=== PATIENT | male | born 1965 | race Caucasian/White ===

== ENCOUNTER 2019-09-07 06:28 | Observation (INO) | payer SELFPAY ==
[2019-09-07] MEDS ORDERED: diazePAM 5 MG TAB PO ONE (07:31)
[2019-09-07] MEDS ORDERED: HYDROcodone 5MG/APAP 325MG 1 EA TAB PO ONE (07:37)
--- NOTE | 2019-09-07 07:37 | ED.PDOC ---
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 Pt has not been able to sleep since the pain. Pain is sharp, radiates into L arm, had an episode of nausea with vomiting when pain was at its worst earlier. Reports hx of L spine surgery 20 yrs ago, had been to chiropractor in the past, yesterdays manipulation was "not an easy manipulation." Denies trauma, falls, f/c, cough, congestion, CP, SOB, diffuse myalgias, FITZPATRICK, change in vision, weakness, numbness, abd pain, flank pain, urinary sx. Allergies/Adverse Reactions: Allergies Eggs or Egg-derived Products Allergy (Verified 09/07/19 06:49) Flu Virus Vaccine Allergy (Verified 09/07/19 06:49) Home Medications: Ambulatory Orders Diltiazem HCl [Diltiazem HCl ER] 180 mg PO BID 09/07/19 Lisinopril 20 mg PO BID 09/07/19 Meloxicam 7.5 mg PO BID 09/07/19 Serrapeptase 120,000 unit PO DAILY 09/07/19 Review of Systems - Review of Systems Constitutional: Denies: chills, fever EENTM: Denies: blurred vision, double vision Respiratory: Denies: cough, short of breath Cardiology: Denies: chest pain, palpitations Gastrointestinal/Abdominal: States: nausea, vomiting. Denies: abdominal pain, diarrhea Musculoskeletal: States: back pain, neck pain. Denies: joint pain, joint swelling, muscle stiffness Skin: Denies: change in color, rash Neurological: Denies: headache, numbness, weakness Hematologic/Lymphatic: Denies: easy bleeding, easy bruising Past Medical History (General) - Patient Medical History Hx Cardiac Disorders: Yes Hx Hypertension: Yes Surgical History: other - Vaccination History Hx Tetanus, Diphtheria Vaccination: Yes Hx Influenza Vaccination: No - allergic Hx Pneumococcal Vaccination: No - Social History Hx Tobacco Use: Yes Hx Alcohol Use: Yes Family Medical History - Family History Father Hx Family Hypertension: Yes Hx Cardiac Disease: Yes - a-fib Mother Hx Family Cancer: Yes - breast Physical Exam - Physical Exam General Appearance: Alert, No apparent distress, Well Developed, Well Nourished, Other - Laying reclined in bed, R arm behind head Eye Exam: bilateral normal Ears, Nose, Throat: normal ENT inspection Neck: full range of motion, supple, normal inspection, other - Lower C midline and paraspinal TTP Respiratory: chest non-tender, lungs clear, normal breath sounds, no respiratory distress, no accessory muscle use Cardiovascular/Chest: normal peripheral pulses, regular rate, rhythm, no edema, no gallop, no JVD, no murmur Peripheral Pulses: radial,right: 2+, radial,left: 2+ Gastrointestinal/Abdominal: non tender, soft, no organomegaly, no pulsatile mass Back Exam: normal inspection, no CVA tenderness, vertebral tenderness - Upper T midline and paraspinal TTP Extremity: normal range of motion, non-tender, normal inspection, no pedal edema, no calf tenderness, normal capillary refill 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 Pt states he is having chest pain, however when he points to where that pain is, it is not in his chest and instead in his armpit. He is not having pain in his chest. EKG ordered, will reassess. 09/07/19 09:48 EKG with incomplete RBBB and LAFB, will obtain blood work. Pt CP has been constant since onset last night and therefore doubt ACS. 09/07/19 11:07 Discussed with [facility] midlevel for hospitalist, accepts pt for admission. Subsequently discussed with pt, agrees with plan of care, all questions and concerns addressed. Pt states he drinks about 4-8 16 ounces bottles of water a day. Cecily Ordonez MD Emergency Medicine Physician Billing Number [id number] - Results/Orders Results/Orders: 09/07/19 09:30 EKG STAT Laboratory Results - last 24 hr 09/07/19 09/07/19 09/07/19 10:18 10:18 10:18 WBC 9.5 RBC 4.82 Hgb 14.8 Hct 42.4 MCV 87.9 MCH 30.7 MCHC 35.0 RDW 12.5 Plt Count 304 MPV 7.5 Absolute Neuts (auto) 6.80 Absolute Lymphs (auto) 2.00 Absolute Monos (auto) 0.60 Absolute Eos (auto) 0.10 Absolute Basos (auto) 0.10 Neutrophils % 71.8 Lymphocytes % 21.1 Monocytes % 5.8 Eosinophils % 0.7 L Basophils % 0.6 Sodium 122 L Potassium 3.9 Chloride 85 L Carbon Dioxide 23 Anion Gap 17.9 BUN 9 Creatinine 0.80 BUN/Creatinine Ratio 11.3 Random Glucose 111 H Serum Osmolality 245.3 L* Calcium 9.4 Total Bilirubin 0.7 AST 21 ALT 23 Alkaline Phosphatase 57 Troponin I < 0.02 Serum Total Protein 7.9 Albumin 4.7 Globulin 3.2 Albumin/Globulin Ratio 1.5 CXR: EXAM: XR Chest, 2 Views CLINICAL HISTORY: back pain TECHNIQUE: Frontal and lateral views of the chest. COMPARISON: No relevant prior studies available. FINDINGS: Limitations: None. Lungs: Unremarkable. No consolidation. Pleural space: Unremarkable. No pneumothorax. Heart: Unremarkable. No cardiomegaly. Mediastinum: Unremarkable. Bones/joints: Unremarkable. IMPRESSION: No acute findings in the chest. Electronically signed by: Marilou Saul MD 09/07/2019 11:02 AM HARNESS AND BAG INSPECTOR CT T spine: PROCEDURE: CT Thoracic Spine Without Intravenous Contrast CLINICAL INDICATION: The patient is 53 years years old, Male; pain TECHNIQUE: Axial computed tomography images of the thoracic spine without intravenous contrast. Sagittal and coronal reformatted images were created and reviewed. This CT exam was performed using one or more of the following dose reduction techniques: automated exposure control, adjustment of the mA and/or kV according to patient size, and/or use of iterative reconstruction technique. COMPARISON: No relevant prior studies available. FINDINGS: VERTEBRAE: There is no evidence of acute fracture, osseous destruction or osteoblastic changes. Vertebral body heights are maintained. There are multilevel endplate irregularities in the thoracic spine consistent with Scheuermann's disease. No evidence of subluxation or dislocation. There is a slight dextroconvex thoracic curve. DISCS/SPINAL CANAL/NEURAL FORAMINA: Disc heights are maintained. SOFT TISSUES: The paraspinous soft tissues are normal. VASCULATURE: Incidentally noted is atherosclerosis in the LAD coronary artery. The visualized aorta demonstrates scattered atherosclerosis without evidence of an aneurysm. PLEURAL SPACE: The visualized lungs are clear with no evidence of gross consolidation, pleural effusions or pneumothoraces. IMPRESSION: No acute osseous abnormality in the thoracic spine. Incidentally noted is atherosclerosis in the LAD coronary artery. Electronically signed by: Natalee Mensah MD 09/07/2019 9:17 AM HARNESS AND BAG INSPECTOR CT C spine: PROCEDURE: CT Cervical Spine Without Intravenous Contrast CLINICAL INDICATION: The patient is 53 years old and is Male; pain MAIN TECHNIQUE: Axial computed tomography images of the cervical spine without intravenous contrast. Sagittal and coronal reformatted images were created and reviewed. This CT exam was performed using one or more of the following dose reduction techniques: automated exposure control, adjustment of the mA and/or kV according to patient size, and/or use of iterative reconstruction technique. COMPARISON: No relevant prior studies available. FINDINGS: VERTEBRAE: No fracture or malalignment identified in the cervical spine. There is multilevel mild cervical spondylosis and discogenic degenerative change. The lateral masses of C1 are normal with respect to C2. There is reversal of the normal cervical lordosis centered at C5- C6. The dens is intact. DISCS/SPINAL CANAL/NEURAL FORAMINA: No acute abnormality identified. No spinal canal stenosis. OTHER BONES/JOINTS: The visualized skull base is without fracture. SOFT TISSUES: No prevertebral soft tissue hematoma identified. VASCULATURE: Atherosclerotic calcification noted at the carotid siphons bilaterally. MASTOID AIR CELLS: The inferior mastoid air cells are clear. THYROID: Thyroid gland is unremarkable. LUNG APICES: The lung apices are clear. IMPRESSION: No fracture or malalignment identified in the cervical spine. Electronically signed by: Joon Rivera MD 09/07/2019 9:16 AM HARNESS AND BAG INSPECTOR Vital Signs - 24 hr 09/07/19 09/07/19 09/07/19 06:48 07:29 08:00 Temperature 98.0 F Pulse Rate [ 18 L 18 L 79 left] Respiratory 18 18 18 Rate Blood Pressure 163/85 130/87 [left] O2 Sat by Pulse 96 96 Oximetry 09/07/19 09:00 Temperature Pulse Rate [ 69 left] Respiratory 18 Rate Blood Pressure 116/72 [left] O2 Sat by Pulse 97 Oximetry - EKG/XRAY/CT EKG: Sinus, RBBB - incomplete, no ST T wave changes Comments: Sinus arrhythmia, LAFB Departure - Departure Clinical Impression: Hyponatremia, Upper back pain, Neck pain Time of Disposition: 11:12 Disposition: Admit Patient Condition: Fair Home Medications: Ambulatory Orders Diltiazem HCl [Diltiazem HCl ER] 180 mg PO BID 09/07/19 Lisinopril 20 mg PO BID 09/07/19 Meloxicam 7.5 mg PO BID 09/07/19 Serrapeptase 120,000 unit PO DAILY 09/07/19
--- NOTE | 2019-09-07 09:17 | CT ---
PROCEDURE: CT Cervical Spine Without Intravenous Contrast CLINICAL INDICATION: The patient is 53 years old and is Male; pain MAIN TECHNIQUE: Axial computed tomography images of the cervical spine without intravenous contrast. Sagittal and coronal reformatted images were created and reviewed. This CT exam was performed using one or more of the following dose reduction techniques: automated exposure control, adjustment of the mA and/or kV according to patient size, and/or use of iterative reconstruction technique. COMPARISON: No relevant prior studies available. FINDINGS: VERTEBRAE: No fracture or malalignment identified in the cervical spine. There is multilevel mild cervical spondylosis and discogenic degenerative change. The lateral masses of C1 are normal with respect to C2. There is reversal of the normal cervical lordosis centered at C5-C6. The dens is intact. DISCS/SPINAL CANAL/NEURAL FORAMINA: No acute abnormality identified. No spinal canal stenosis. OTHER BONES/JOINTS: The visualized skull base is without fracture. SOFT TISSUES: No prevertebral soft tissue hematoma identified. VASCULATURE: Atherosclerotic calcification noted at the carotid siphons bilaterally. MASTOID AIR CELLS: The inferior mastoid air cells are clear. THYROID: Thyroid gland is unremarkable. LUNG APICES: The lung apices are clear. IMPRESSION: No fracture or malalignment identified in the cervical spine. Electronically signed by: Joon Rivera MD 09/07/2019 9:16 AM DIRECTOR OF AUDIOLOGY
--- NOTE | 2019-09-07 09:19 | CT ---
PROCEDURE: CT Thoracic Spine Without Intravenous Contrast CLINICAL INDICATION: The patient is 53 years years old, Male; pain TECHNIQUE: Axial computed tomography images of the thoracic spine without intravenous contrast. Sagittal and coronal reformatted images were created and reviewed. This CT exam was performed using one or more of the following dose reduction techniques: automated exposure control, adjustment of the mA and/or kV according to patient size, and/or use of iterative reconstruction technique. COMPARISON: No relevant prior studies available. FINDINGS: VERTEBRAE: There is no evidence of acute fracture, osseous destruction or osteoblastic changes. Vertebral body heights are maintained. There are multilevel endplate irregularities in the thoracic spine consistent with Scheuermann's disease. No evidence of subluxation or dislocation. There is a slight dextroconvex thoracic curve. DISCS/SPINAL CANAL/NEURAL FORAMINA: Disc heights are maintained. SOFT TISSUES: The paraspinous soft tissues are normal. VASCULATURE: Incidentally noted is atherosclerosis in the LAD coronary artery. The visualized aorta demonstrates scattered atherosclerosis without evidence of an aneurysm. PLEURAL SPACE: The visualized lungs are clear with no evidence of gross consolidation, pleural effusions or pneumothoraces. IMPRESSION: No acute osseous abnormality in the thoracic spine. Incidentally noted is atherosclerosis in the LAD coronary artery. Electronically signed by: Natalee Mensah MD 09/07/2019 9:17 AM WEIGHER PACKING
[2019-09-07] MEDS ORDERED: KETOROLAC TROMETHAMINE INJ 30 MG/ML VIAL IV ONE (10:10)
--- NOTE | 2019-09-07 11:04 | RAD ---
EXAM: XR Chest, 2 Views CLINICAL HISTORY: back pain TECHNIQUE: Frontal and lateral views of the chest. COMPARISON: No relevant prior studies available. FINDINGS: Limitations: None. Lungs: Unremarkable. No consolidation. Pleural space: Unremarkable. No pneumothorax. Heart: Unremarkable. No cardiomegaly. Mediastinum: Unremarkable. Bones/joints: Unremarkable. IMPRESSION: No acute findings in the chest. Electronically signed by: Marilou Saul MD 09/07/2019 11:02 AM SENSOR SPECIALIST
--- NOTE | 2019-09-07 12:52 | HP ---
SUPERVISING PHYSICIAN: Akira Yee M.D. CHIEF COMPLAINT: Neck and shoulder pain and hyponatremia. HISTORY OF PRESENT ILLNESS: Mr. Pacheco is a 53 year-old male patient who has a history of hypertension. He presented to the Emergency Room this morning with some left sided neck and upper back pain that started yesterday. 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 The patient was unable to sleep last night due to the pain. He notes it is sharp and radiates from the left side of his neck into his shoulder to his arm pit or axilla area. He did note he had 1 episode of nausea and vomiting when the pain was at its worst. He has had a history of lumbar spine surgery 20 years previously and denied any traumas or falls. He denied any actual chest pains, shortness of breath, headaches, vision changes, weakness, numbness, abdominal pains, flank pain or urinary symptoms. Initial workup in the Emergency Room included cardiac workup with EKG showing a partial right bundle branch hemifascicular block compared to old EKGs from the clinic. No acute changes. No ST or T wave abnormalities noted to indicate acute ischemia or injury pattern. He was given Toradol and Valium which did result in some relief of his pain. Again the pain was noted to be worse with manipulation of the left shoulder more so of both active and passive range of motion. Laboratory studies showed a normal CBC but his chemistries indicated a hyponatremia with sodium of 122. Serum osmolality is 243, otherwise other electrolytes were within normal limits except for a low chloride of 85. He had 2 sets of troponin prior to admission which were less than 0.02. He had a CT of the cervical and thoracic spine which were without any acute findings per radiology interpretation. He also had a chest x-ray that showed no acute findings. Given his degree of hyponatremia with no explanation initially on admission other than a review of his medications showed that he is on diuretic chlorthalidone but has been chronically for years. A review of last labs that were recorded in the clinic in February showed his sodium to be in the normal levels in the 130s. He is now going to be placed in observation for treatment of hyponatremia and further treatment of his neck and shoulder pain to further rule out any acute cardiac event. PAST MEDICAL HISTORY: 1. Chronic back pain of the lower back with lumbar disc disease. 2. History of supraventricular tachycardia diagnosed in 2004 on Cardizem. PAST SURGICAL HISTORY: 1. Lumbar surgery. HOME MEDICATIONS: 1. Chlorthalidone 25 mg daily. 2. [place] 10/325 one every 6 hours as needed for pain. 3. Meloxicam 7.5 mg b.i.d. 4. Lisinopril 20 mg b.i.d. 5. Cardizem extended release 180 mg b.i.d. ALLERGIES: EGGS AND EGG DERIVATIVES, AND FLU VACCINE. FAMILY HISTORY: Father is still alive in his late 70s. He has chronica trial fibrillation and cardiovascular disease. Mother in her 40s secondary to breast cancer. 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 He is . He does smoke approximately 1//2 pack a day and has for well over 30 years. Drinks alcohol on a social basis. Denies any illicit drug use. REVIEW OF SYSTEMS: CONSTITUTIONAL: Denies any chills or fevers. HEENT: Denies any blurred vision, double vision, headaches. Denies any ear aches, sore throat, nasal congestion. NECK: Positive for neck pain as noted in History of Present Illness. RESPIRATORY: Denies any coughing, shortness of breath or wheezing. CARDIOVASCULAR: Denies any chest pains, palpitations or syncopal episodes. GASTROINTESTINAL: Had an episode of nausea and some vomiting. Denies any abdominal pains, diarrhea or constipation. GENITOURINARY: Denies any dysuria, hematuria or polyuria. MUSCULOSKELETAL: As noted in history of present illness. Chronic back pain with some neck pain. Denies any joint pain, swelling or muscle stiffness. SKIN: Denies any changes in color, lesions, rashes, moles. NEUROLOGIC: Denies any headaches, numbness, weakness, ataxia or syncopal episodes or other focal deficits. HEMATOLOGIC: Denies any easy bleeding or unexplained bruising. PHYSICAL EXAMINATION: VITAL SIGNS: On admission, temperature 97.6, pulse 70, blood pressure 104/77, respirations 18, satting 99% on room air. GENERAL: The patient on admission to the Medical/Surgical floor appears to be resting comfortably in no acute distress. He is alert. HEENT: Tympanic membranes are clear bilaterally. Oropharynx is pink and moist without any lesions. NECK: Supple with full range of motion. He does have some tenderness to palpation on the cervical midline and paraspinal process but no obvious deformities. CHEST: Lung sounds are clear to auscultation bilaterally without any rhonchi, wheezing or rales. CARDIOVASCULAR: Regular rate and rhythm without appreciable murmurs, gallops, or rubs. ABDOMEN: Soft, non-tender. Positive bowel sounds. BACK: He does have also some tenderness noted to the upper thoracic midline and paraspinal process, but again no obvious trauma. No CVA tenderness. EXTREMITIES: Without any edema. He has some discomfort with passive and active range of motion in the left shoulder, more so in the scapular region radiating into his axilla. NEUROLOGIC: Cranial nerves II-XII are grossly intact. Facial features are symmetrical. Extraocular movements are within normal limits. He is noted to be alert and oriented times three with both upper and lower extremity strength to be bilaterally 5/5. SKIN: Warm, pink and dry. EKG showed incomplete right bundle branch and left anterior fascicular block but unchanged compared to old EKGs noted in October 2008. No [address] or T wave changes. LABORATORY: CBC showed to be within normal limits with white count of 9,500. Chemistry shows sodium 122, chloride 85. Liver functions are all within normal limits. Creatinine was 0.8. Serum osmolality 243. Troponins were less than 0.02. RADIOLOGY: Chest x-ray was without any acute findings per radiology interpretation as well as he had a cervical and thoracic spine CT without contrast with no acute findings. Please see those reports for details. ASSESSMENT: 1. Hyponatremia probably chronic with the patient on Chlorthalidone with some reported nausea and vomiting prior to admission and low serum osmolality. 2. Left sided neck and shoulder pain status post manipulation via chiropractor prior to admission likely due to musculoskeletal origin needing to rule out chest pains with current cardiac workup being negative. 3. Chronic nicotine addiction in a chronic smoker. 4. Hypertension. 5. Chronic lower back pain. PLAN: The patient is going to be placed in observation for correction of his hyponatremia. I started him on normal saline at 110. Will limit his fluids to 1800 mL per 24 hours. Will repeat his labs in the morning. Will review his medications and hold the Chlorthalidone as this may be the results of the hyponatremia. Will have him on every 4 hour neurologic checks. Will go ahead and give him some Dilaudid and some Zanaflex to assist in decreasing the pain in his neck and shoulders as well as some IM Decadron and Toradol. Anticipate length of stay to be 1 to 2 days. Probably discharge later tomorrow. Until we can transition to outpatient management will continue to monitor and treat as needed. #[id number] [facility]
[2019-09-07] MEDS ORDERED: tiZANidine 4 MG TAB PO PRN (13:47)
[2019-09-07] MEDS ORDERED: DEXAMETHASONE INJ 4 MG/ML VIAL IM ONE (13:47)
[2019-09-07] MEDS ORDERED: HYDROmorphone HCL INJ 2 MG/ML VIAL IV ONE ×2 (13:50→20:41)
[2019-09-07] MEDS ORDERED: SODIUM CHLORIDE 0.9% (FLUSH) 10 ML SYG IV PRN (13:50)
[2019-09-07] MEDS ORDERED: ACETAMINOPHEN 325 MG TAB PO PRN (13:50)
[2019-09-07] MEDS ORDERED: ONDANSETRON INJ 4 MG/2 ML VIAL IV PRN (13:50)
[2019-09-07] MEDS ORDERED: IV SET AND CAP CHANGE INJ INJ SCH (14:00)
[2019-09-07] MEDS: KETOROLAC TROMETHAMINE INJ 30 MG/ML VIAL IV SCH ×2 (14:02→19:28)
[2019-09-07] MEDS: SODIUM CHLORIDE 0.9% 1000ML 1,000 ML IVS PRN ×2 (14:11→23:16)
[2019-09-07] MEDS ORDERED: LISINOPRIL 10 MG TAB ONE (18:48)
[2019-09-07] MEDS ORDERED: diltiaZEM HCL CD 180 MG CAP ONE (18:48)
[2019-09-07] MEDS: LISINOPRIL 10 MG TAB PO SCH (20:35)
[2019-09-07] MEDS: diltiaZEM HCL CD 180 MG CAP PO SCH (20:35)
[2019-09-07] MEDS ORDERED: LOPERAMIDE CAP 2 MG CAP ONE (21:13)
[2019-09-08] MEDS: KETOROLAC TROMETHAMINE INJ 30 MG/ML VIAL IV SCH ×2 (01:59→08:06)
[2019-09-08 05:11] VITALS: TEMP 98.1
[2019-09-08] MEDS: SODIUM CHLORIDE 0.9% 1000ML 1,000 ML IVS PRN (08:06)
[2019-09-08] MEDS: LISINOPRIL 10 MG TAB PO SCH (08:26)
[2019-09-08] MEDS: diltiaZEM HCL CD 180 MG CAP PO SCH (08:26)
[2019-09-08 09:13] VITALS: BP 93/63; O2SAT 97
--- NOTE | 2019-09-09 09:23 | DS ---
SUPERVISING PHYSICIAN: Akira Yee MD ADMISSION DIAGNOSIS: 1. Hyponatremia probably chronic with the patient on chlorthalidone with some reported nausea and vomiting prior to admission and low serum osmolality. 2. Left sided neck and shoulder pain status post manipulation via chiropractor prior to admission likely due to musculoskeletal origin needing to rule out chest pains with current cardiac workup being negative. 3. Chronic nicotine addiction in a chronic smoker. 4. Hypertension. 5. Chronic lower back pain. DISCHARGE DIAGNOSIS: 1. Chronic hyponatremia, asymptomatic, with the patient on chronic thiazide diuretic. 2. Left sided neck and shoulder pain due to musculoskeletal discomfort, but no findings to indicate acute coronary syndrome with the patient having just recently prior to admission been seen by a chiropractic provider, likely due to chronic cervical radiculopathy, needing to be followed up as an outpatient. 3. Chronic nicotine addiction, encouraged to stop smoking. 4. Hypertension. 5. Chronic lower back pain. REASON FOR HOSPITALIZATION: Mr. Pacheco is a 53 year-old male patient who has a history of hypertension. He presented to the Emergency Room this morning with some left sided neck and upper back pain that started yesterday. 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 The patient was unable to sleep last night due to the pain. He notes it is sharp and radiates from the left side of his neck into his shoulder to his arm pit or axilla area. He did note he had 1 episode of nausea and vomiting when the pain was at its worst. He has had a history of lumbar spine surgery 20 years previously and denied any traumas or falls. He denied any actual chest pains, shortness of breath, headaches, vision changes, weakness, numbness, abdominal pains, flank pain or urinary symptoms. Initial workup in the Emergency Room included cardiac workup with EKG showing a partial right bundle branch hemifascicular block compared to old EKGs from the clinic. No acute changes. No ST or T wave abnormalities noted to indicate acute ischemia or injury pattern. He was given Toradol and Valium which did result in some relief of his pain. Again the pain was noted to be worse with manipulation of the left shoulder more so of both active and passive range of motion. Laboratory studies showed a normal CBC but his chemistries indicated a hyponatremia with sodium of 122. Serum osmolality is 243, otherwise other electrolytes were within normal limits except for a low chloride of 85. He had 2 sets of troponin prior to admission which were less than 0.02. He had a CT of the cervical and thoracic spine which were without any acute findings per radiology interpretation. He also had a chest x-ray that showed no acute findings. Given his degree of hyponatremia with no explanation initially on admission other than a review of his medications showed that he is on diuretic chlorthalidone but has been chronically for years. A review of last labs that were recorded in the clinic in February showed his sodium to be in the normal levels in the 130s. He is now going to be placed in observation for treatment of hyponatremia and further treatment of his neck and shoulder pain to further rule out any acute cardiac event. LABORATORY: CBC on admission was within normal limits with white count of 9,500. Chemistry did show sodium 122, stable with serum osmolality 245. All other electrolytes were within normal limits. Troponins were less than 0.02. TSH normal at 0.48. Total cortisol was pending. Urinalysis, urine sodium random was pending. RADIOLOGY: He had a CT of the thoracic and cervical spine in the Emergency Room showing no acute abnormalities of the thoracic spine. There was note of some LAD coronary atherosclerosis. Cervical spine showed no fracture or malalignment identified in the cervical spine. Please see that report for details. There is note of some multilevel mild cervical spondylosis and discogenic degenerative changes noted. Chest x-ray prior to admission per radiology interpretation showed no acute findings in the chest. EKGs did show an incomplete right bundle branch and left anterior fascicular block, both on admission and on a compared EKG done in October of [address] acute [address] or T wave changes. HOSPITAL COURSE: Mr. Pacheco was admitted for hyponatremia, which was asymptomatic. He was given some IV saline overnight with no significant change. He had no signs or symptoms of severe hyponatremia and it was felt to be chronic due to his thiazide diuretic. He did have a significant amount of stiffness in the left side of his neck and shoulder pain which was reproducible and he did get relief with some pain management initially with Dilaudid, Zanaflex and Toradol. He noted prior to admission that he had not slept in 48 hours. With management of his pain, he was able to sleep while in the hospital. On the day of discharge, he noted he felt much better. He was still having some stiffness and soreness in his neck and shoulder, but had improved since admission. He had no signs or symptoms of hyponatremia, no chest pains. It was felt he was stable enough to continue with outpatient management and followup with Dr. Ness. DISCHARGE ASSESSMENT: VITAL SIGNS: Temperature 98.1. Pulse 72. Blood pressure 93/63. Respirations 16. Saturation 97% on room air. GENERAL: The patient is resting comfortable, appeared to be in no acute distress. He showed no obvious discomfort on moving his neck and shoulder on exam. CHEST: Lungs clear to auscultation. HEART: Regular rate and rhythm. ABDOMEN: Soft, nontender, positive bowel sounds. EXTREMITIES: He was moving all extremities ad arnie including his upper extremity and was showing no discomfort with passive or active range of motion. NEUROLOGIC: Alert and oriented times 3 with no focal motor deficits. SKIN: Warm, pink and dry. PLAN: Mr. Pacheco was discharged to followup with Dr. Ness. He is to call Dr. Ness' office on Monday to followup next week and have labs repeated. He was encouraged to limit his intake of fluids to less than 1800 mL a day and to avoid alcohol consumption. He was again encouraged to stop smoking and this was discussed at length with him. He was also given warnings that should he have any worsening symptoms of nausea, vomiting, any weakness, change in vision or anything, he should return to the Emergency Room for further evaluation. He was told to hold his thiazide diuretic. He was encouraged to keep his blood pressure levels twice a day to take in with him to see Dr. Ness on followup. He was encouraged to avoid any strenuous lifting, pulling or other strenuous activities until he is seen in followup to prevent further injury to his neck and shoulder. He was given a script for Tylenol #3 and Zanaflex to assist with pain management. He was to utilize a heating pad as needed. Diet on discharge was regular diet as tolerated with fluid restriction to less than 1800 mL until seen in followup with Dr. Ness. Activities as noted above, no strenuous pulling or lifting until clear to by Dr. Ness. DISCHARGE MEDICATIONS: 1. Meloxicam 7.5 mg b.i.d. 2. Lisinopril 20 mg daily. 3. Diltiazem 180 mg b.i.d. 4. Zanaflex 4 mg q.4h. as needed, #50, no refills. 5. Tylenol #3, 1 q.4h. as needed for pain, #30, no refills. He was told to hold his chlorthalidone until seen in followup. CONDITION ON DISCHARGE: Stable and improved. DISPOSITION: The patient was discharged to care of family members. #[id number] [facility]
== END 2019-09-08 11:55 | disposition home or self-care (01) ==
LOC: ER 06:28 → MS 12:50
PROVIDERS: ADMIT Nurse Practitioner Family; ATTEND Nurse Practitioner Family
DX: E87.1 Hypo-osmolality and hyponatremia (principal); M54.2 Cervicalgia; M25.512 Pain in left shoulder; M54.6 Pain in thoracic spine; F17.210 Nicotine dependence, cigarettes, uncomplicated; I10 Essential (primary) hypertension; G89.29 Other chronic pain; M51.36 Other intervertebral disc degeneration, lumbar region; R11.2 Nausea with vomiting, unspecified; I45.2 Bifascicular block; M47.812 Spondylosis without myelopathy or radiculopathy, cervical region; Z79.1 Long term (current) use of non-steroidal anti-inflammatories (NSAID); Z79.899 Other long term (current) drug therapy; Z88.7 Allergy status to serum and vaccine; Z91.012 Allergy to eggs; Z82.49 Family history of ischemic heart disease and other diseases of the circulatory system; Z80.3 Family history of malignant neoplasm of breast
CPT/HCPCS: 96361 ×2; 96374; 96375; 96376 ×2; 96372; J1100; J1170 ×2; J1885 ×5; J2405; J7030 ×3; 80048; 80053; 36415 ×2; 85025; 84443; 84484 ×2; 82533; 71046; 72128; 72125; 94760 ×2; 99285; 93005